=== PATIENT | male | born 1990 | race Caucasian/White ===

== ENCOUNTER 2019-06-29 21:03 | Emergency (ER) | payer SELFPAY ==
[2019-06-29 21:15] VITALS: BP 151/91
== END 2019-06-29 21:13 | disposition left against medical advice (07) ==
LOC: ER 21:03
DX: Z53.21 Procedure and treatment not carried out due to patient leaving prior to being seen by health care provider (principal)

== ENCOUNTER 2019-11-02 17:49 | Emergency (ER) | payer BC ==
[2019-11-02] MEDS ORDERED: NORMAL SALINE 1000 ML 1,000 ML IV ONE ×2 (18:40→20:00)
[2019-11-02] MEDS ORDERED: ONDANSETRON HCL INJ/PF 4 MG/2 ML SDV IV ONE (18:40)
[2019-11-02] MEDS ORDERED: KETOROLAC TROMETHAMINE INJ/PF 30 MG/1 ML SDV IV ONE ×2 (18:46→20:36)
[2019-11-02] MEDS ORDERED: DIPHENHYDRAMINE HCL 50 MG/ML VIAL IV ONE (18:47)
--- NOTE | 2019-11-02 18:47 | ER Document Report ---
ED General - General Chief Complaint: Headache Stated Complaint: HEADACHE/NAUSEA/VOMITING/BODY ACHES Time Seen by Provider: 11/02/19 18:37 Primary Care Provider: KEITH PEREZ MD [ACTIVE STAFF] - Follow up in 3-5 days (for primary care follow up) TRAVEL OUTSIDE OF THE [place] IN LAST 30 DAYS: No - HPI Notes: 29-year-old male to the emergency department with complaints of nausea vomiting, headache, body aches for the past 3 days. He states that the headache started gradually and that has gotten progressively worse. He feels like it is behind his eyes. He has photophobia. He states he has not been able to keep anything down because of vomiting. He denies any diarrhea or abdominal pain. He states that he feels achy all over. He denies any cough or runny nose. He denies any sore throat or ear pain. He denies fran neck stiffness. He denies any sick contacts. The headache was gradual in onset and not thunderclap. - Related Data Allergies/Adverse Reactions: No Known Allergies Allergy (Unverified 01/15/12 15:57) Past Medical History - General Information source: Patient - Social History Smoking Status: Never Smoker Frequency of alcohol use: None Drug Abuse: None Family History: Reviewed & Not Pertinent Patient has suicidal ideation: No Patient has homicidal ideation: No Pulmonary Medical History: Reports: Hx Asthma - Immunizations Hx Diphtheria, Pertussis, Tetanus Vaccination: Yes Review of Systems - Review of Systems Constitutional: Diaphoresis - states he has been waking up sweating with his sheets wet, Malaise EENT: Eye pain, Other - Photophobia. denies: Double vision, Ear pain, Nose congestion Cardiovascular: denies: Chest pain, Palpitations, Dyspnea, Syncope, Dizziness Gastrointestinal: Nausea, Vomiting. denies: Abdominal pain, Diarrhea Genitourinary: No symptoms reported Musculoskeletal: Muscle pain - Body aches Skin: No symptoms reported. denies: Rash Hematologic/Lymphatic: No symptoms reported Neurological/Psychological: No symptoms reported -: Yes All other systems reviewed and negative Physical Exam - Vital signs Vitals: Temp Pulse Resp BP Pulse Ox 97.9 F 83 16 108/65 99 11/02/19 17:54 11/02/19 17:54 11/02/19 17:54 11/02/19 17:54 11/02/19 17:54 - General General appearance: Alert In distress: Moderate Notes: Patient in moderate pain distress. He has the lights off and is covering his eyes. - HEENT Head: Normocephalic, Atraumatic Eyes: Normal Pupils: PERRL Ears: Normal External canal: Normal Tympanic membrane: Normal Sinus: Normal Nasal: Normal Mouth/Lips: Normal. No: Angioedema Pharynx: Normal. No: Uvular edema, Potential airway comprom. Neck: Normal, Supple. No: Lymphadenopathy, Meningismus - Respiratory Respiratory status: No respiratory distress Chest status: Nontender Breath sounds: Normal. No: Rales, Rhonchi, Wheezing Chest palpation: Normal - Cardiovascular Rhythm: Regular Heart sounds: Normal auscultation Murmur: No - Abdominal Inspection: Normal Distension: No distension Bowel sounds: Normal Tenderness: Nontender. No: Tender, McBurney's point, Garibay's sign, Guarding, Rebound Organomegaly: No organomegaly - Back Back: Normal, Nontender - Extremities General upper extremity: Normal inspection, Nontender, Normal color, Normal ROM, Normal temperature General lower extremity: Normal inspection, Nontender, Normal color, Normal ROM, Normal temperature, Normal weight bearing - Neurological Neuro grossly intact: Yes Cognition: Normal Orientation: AAOx4 Shan Coma Scale Eye Opening: Spontaneous Reading Coma Scale Verbal: Oriented Reading Coma Scale Motor: Obeys Commands Shan Coma Scale Total: 15 Speech: Normal Cranial nerves: Normal. No: Facial palsy, Forehead sparing, Gaze palsy, Sensory deficit, Tongue deviation Cerebellar coordination: Normal. 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 No: Pronator drift Sensory: Normal - Psychological Associated symptoms: Normal affect, Normal mood - Skin Skin Temperature: Warm Skin Moisture: Dry Skin Color: Normal Course - Re-evaluation Re-evalutation: 11/02/19 20:19 Noted on patient. He is no longer vomiting. He states that he feels much better. He states that his headache is lifted quite a bit. We will give another bag of fluids and continue to monitor the patient. Rounded on patient and he is significantly better after another 15 mg of Toradol. He no longer has a headache. Did discuss this patient with Dr. Jordan. WE agree that this is likely a flu like syndrome despite negative Flu A and B testing. He does not have nuchal rigidity, his lab work is completely WNL. He does not have a fever and his vital signs are stable. He is tolerating PO challenge with jesse evan. Will discharge home. Encouraged to return if worse. - Vital Signs Vital signs: Temp Pulse Resp BP Pulse Ox 98.4 F 54 L 15 104/59 L 96 11/02/19 20:21 11/02/19 20:21 11/02/19 20:21 11/02/19 20:21 11/02/19 20:21 - Laboratory Result Diagrams: 11/02/19 18:55 11/02/19 18:55 Discharge - Discharge Clinical Impression: Flu-like symptoms Headache Qualifiers: Headache type: unspecified Headache chronicity pattern: acute headache Intractability: not intractable Qualified Code(s): R51 - Headache Nausea & vomiting Qualifiers: Vomiting type: unspecified Vomiting Intractability: non-intractable Qualified Code(s): R11.2 - Nausea with vomiting, unspecified Condition: Stable Disposition: HOME, SELF-CARE Instructions: Headache ([facility]) Additional Instructions: Push fluids. Take medicine as prescribed. Return if worsening symptoms. Follow-up with primary care. Prescriptions: Ketorolac Tromethamine [Toradol 10 mg Tablet] 10 mg PO Q8HP PRN #15 tablet PRN Reason: Ondansetron [Zofran Odt 4 mg Tablet] 1 - 2 tab PO Q4H PRN #15 tab.rapdis PRN Reason: For Nausea/Vomiting Forms: Return to Work Referrals: KEITH PEREZ MD [ACTIVE STAFF] - Follow up in 3-5 days (for primary care follow up)
[2019-11-02 19:16] LABS: ABSOLUTE EOSINOPHILS # (AUTO) 0.2 10^3/uL (0.0-0.6); ABSOLUTE LYMPHOCYTES (AUTO) 1.3 10^3/uL (0.5-4.7); ABSOLUTE MONOCYTES (AUTO) 0.7 10^3/uL (0.1-1.4); ABSOLUTE NEUT (AUTO) 5.2 10^3/uL (1.7-8.2); BASOPHILS % (AUTO) 0.3 % (0-2); EOSINOPHILS % (AUTO) 2.4 % (0-6); HEMATOCRIT 43.6 % (37.9-51.0); HEMOGLOBIN 15.4 g/dL (13.5-17.0); LYMPHOCYTES % (AUTO) 17.7 % (13-45); MEAN CORPUSCULAR HEMOGLOBIN 31.8 pg (27.0-33.4); MEAN CORPUSCULAR HGB CONC 35.2 g/dL (32.0-36.0); MEAN CORPUSCULAR VOLUME 90 fl (80-97); MONOCYTES % (AUTO) 9.6 % (3-13); PLATELET COUNT 318 10^3/uL (150-450); RED BLOOD COUNT 4.83 10^6/uL (4.35-5.55); RED CELL DISTRIBUTION WIDTH 12.7 % (11.5-14.0); TOTAL CELLS COUNTED % (AUTO) 100 %; WHITE BLOOD COUNT 7.4 10^3/uL (4.0-10.5)
[2019-11-02 19:32] LABS: ANION GAP 14 (5-19); BLOOD UREA NITROGEN 20 mg/dL (7-20); CALCIUM 9.6 mg/dL (8.4-10.2); CARBON DIOXIDE 26 mmol/L (22-30); CHLORIDE 98 mmol/L (98-107); GLUCOSE 81 mg/dL (75-110); POTASSIUM 4.1 mmol/L (3.6-5.0)
[2019-11-02 20:18] LABS: A TYPE INFLUENZA AG NEGATIVE (NEGATIVE); B INFLUENZA AG NEGATIVE (NEGATIVE)
[2019-11-02 20:22] VITALS: BP 104/59
== END 2019-11-02 21:51 | disposition home or self-care (01) ==
LOC: ER 17:49
DX: R51 Headache (principal); R11.2 Nausea with vomiting, unspecified; H53.149 Visual discomfort, unspecified; R61 Generalized hyperhidrosis; R53.81 Other malaise; H57.10 Ocular pain, unspecified eye
CPT/HCPCS: 36415; 85025; 80048; 87804; J1200; J1885; J2405; J7030; 96361; 96374; 96375; 96376; 99284